=== PATIENT | male | born 1980 ===

== ENCOUNTER 2017-07-20 13:23 | Outpatient (RCR) | payer BC | END 2017-08-08 | disposition home or self-care (01) | LOC: WCC 13:23 | DX: L97.929 Non-pressure chronic ulcer of unspecified part of left lower leg with unspecified severity (principal); Z90.49 Acquired absence of other specified parts of digestive tract; I10 Essential (primary) hypertension; Z87.442 Personal history of urinary calculi | CPT/HCPCS: 11043; 29581; G0463 ==

== ENCOUNTER 2017-08-10 13:52 | Outpatient (RCR) | payer BC ==
[~2017-08-10] VITALS: Ht 182.9 cm; Wt 241.8 kg
== END 2017-09-08 | disposition home or self-care (01) ==
LOC: WCC 13:52
DX: L97.823 Non-pressure chronic ulcer of other part of left lower leg with necrosis of muscle (principal); L03.116 Cellulitis of left lower limb; R60.0 Localized edema; E66.01 Morbid (severe) obesity due to excess calories; B35.4 Tinea corporis
CPT/HCPCS: 11043; 29580

== ENCOUNTER 2017-09-09 09:30 | Outpatient (RCR) | payer BC | END 2017-10-08 | disposition home or self-care (01) | LOC: EDBD → WCC 09:30 | DX: L97.823 Non-pressure chronic ulcer of other part of left lower leg with necrosis of muscle (principal); L03.116 Cellulitis of left lower limb; R60.0 Localized edema; E66.01 Morbid (severe) obesity due to excess calories; B35.4 Tinea corporis; I10 Essential (primary) hypertension; Z90.49 Acquired absence of other specified parts of digestive tract | CPT/HCPCS: 11042; 11043; 29580 ==

== ENCOUNTER 2017-09-15 08:31 | Outpatient (CLI) | payer BC ==
[2017-09-15 09:09] LABS: BASOPHILS % (AUTO) 0.9 % (0.0-2.0); EOSINOPHILS % (AUTO) 3.6 % (0.0-3.0); HEMATOCRIT 37.3 % (42.0-52.0); HEMOGLOBIN 12.6 G/DL (14.2-18.0); LYMPHOCYTES % (AUTO) 23.3 % (20.0-45.0); MEAN CORPUSCULAR VOLUME 93 FL (80-99); MONOCYTES % (AUTO) 10.4 % (1.0-10.0); NEUTROPHILS % (AUTO) 61.8 % (45.0-75.0); PLATELET COUNT 206 K/UL (150-450); RED BLOOD COUNT 3.99 M/UL (4.70-6.10); RED CELL DISTRIBUTION WIDTH 13.6 % (11.6-14.8); WHITE BLOOD COUNT 5.1 K/UL (4.8-10.8)
[2017-09-15 09:46] LABS: ALANINE AMINOTRANSFERASE 38 U/L (12-78); ALBUMIN 3.3 G/DL (3.4-5.0); ALBUMIN/GLOBULIN RATIO 0.8 (1.0-2.7); ALKALINE PHOSPHATASE 70 U/L (46-116); ANION GAP 6 mmol/L (5-15); ASPARTATE AMINO TRANSFERASE 18 U/L (15-37); BILIRUBIN,TOTAL 0.7 MG/DL (0.2-1.0); BLOOD UREA NITROGEN 16 mg/dL (7-18); CALCIUM 9.2 MG/DL (8.5-10.1); CARBON DIOXIDE 30 MMOL/L (21-32); CHLORIDE 105 MMOL/L (98-107); CREATININE 1.4 MG/DL (0.55-1.30); SODIUM 140 MMOL/L (136-145)
== END 2017-09-15 10:31 | disposition home or self-care (01) ==
LOC: LAB 08:31
DX: E11.9 Type 2 diabetes mellitus without complications (principal)
CPT/HCPCS: 36415; 80053; 83036; 84443; 85025

== ENCOUNTER 2017-10-10 09:31 | Outpatient (RCR) | payer BC | END 2017-11-08 | disposition home or self-care (01) | LOC: EDBD 09:31 → WCC 09:31 | DX: L97.822 Non-pressure chronic ulcer of other part of left lower leg with fat layer exposed (principal); I87.332 Chronic venous hypertension (idiopathic) with ulcer and inflammation of left lower extremity; E66.01 Morbid (severe) obesity due to excess calories; R60.0 Localized edema; B35.4 Tinea corporis; I10 Essential (primary) hypertension; Z87.442 Personal history of urinary calculi | CPT/HCPCS: 11042; 15271; 29580; 29581; Q4106; Q4101 ==

== ENCOUNTER 2017-11-09 08:45 | Outpatient (RCR) | payer BC | END 2017-12-09 | disposition home or self-care (01) | LOC: WCC 08:45 | DX: L97.822 Non-pressure chronic ulcer of other part of left lower leg with fat layer exposed (principal); I87.332 Chronic venous hypertension (idiopathic) with ulcer and inflammation of left lower extremity; E66.01 Morbid (severe) obesity due to excess calories; R60.0 Localized edema; B35.4 Tinea corporis; Z90.49 Acquired absence of other specified parts of digestive tract; I10 Essential (primary) hypertension | CPT/HCPCS: 11042 ==

== ENCOUNTER 2017-12-15 15:29 | Outpatient (RCR) | payer BC | END 2018-01-08 | disposition home or self-care (01) | LOC: WCC 15:29 | DX: L97.822 Non-pressure chronic ulcer of other part of left lower leg with fat layer exposed (principal); I87.332 Chronic venous hypertension (idiopathic) with ulcer and inflammation of left lower extremity; E66.01 Morbid (severe) obesity due to excess calories; R60.0 Localized edema; B35.4 Tinea corporis; Z90.49 Acquired absence of other specified parts of digestive tract; I10 Essential (primary) hypertension | CPT/HCPCS: 29581; G0463 ==

== ENCOUNTER 2018-01-09 13:03 | Outpatient (RCR) | payer BC | END 2018-02-08 | disposition home or self-care (01) | LOC: WCC 13:03 | DX: L97.822 Non-pressure chronic ulcer of other part of left lower leg with fat layer exposed (principal); I87.332 Chronic venous hypertension (idiopathic) with ulcer and inflammation of left lower extremity; E66.01 Morbid (severe) obesity due to excess calories; R60.0 Localized edema; B35.4 Tinea corporis; Z90.49 Acquired absence of other specified parts of digestive tract; I10 Essential (primary) hypertension; Z87.442 Personal history of urinary calculi | CPT/HCPCS: 11042 ==

== ENCOUNTER 2018-02-09 09:00 | Outpatient (RCR) | payer BC | END 2018-03-10 | disposition home or self-care (01) | LOC: WCC 09:00 | DX: L97.822 Non-pressure chronic ulcer of other part of left lower leg with fat layer exposed (principal); I87.332 Chronic venous hypertension (idiopathic) with ulcer and inflammation of left lower extremity; E66.01 Morbid (severe) obesity due to excess calories; R60.0 Localized edema; B35.4 Tinea corporis; I10 Essential (primary) hypertension; Z90.49 Acquired absence of other specified parts of digestive tract | CPT/HCPCS: 11042 ==

== ENCOUNTER 2018-03-13 11:08 | Outpatient (RCR) | payer BC ==
[~2018-03-13] VITALS: Ht 182.9 cm; Wt 241.8 kg
[2018-03-16] MEDS ORDERED: Lidocaine HCl 2% Jelly 6ml Tube TOPIC SCH (11:15)
== END 2018-04-10 | disposition home or self-care (01) ==
LOC: WCC 11:08
DX: L97.822 Non-pressure chronic ulcer of other part of left lower leg with fat layer exposed (principal); I87.332 Chronic venous hypertension (idiopathic) with ulcer and inflammation of left lower extremity; E66.01 Morbid (severe) obesity due to excess calories; R60.0 Localized edema; B35.4 Tinea corporis; L97.222 Non-pressure chronic ulcer of left calf with fat layer exposed; Z90.49 Acquired absence of other specified parts of digestive tract; I10 Essential (primary) hypertension; Z87.442 Personal history of urinary calculi
CPT/HCPCS: 11042; 29581; G0463

== ENCOUNTER 2018-04-12 09:30 | Outpatient (RCR) | payer BC | END 2018-05-11 | disposition home or self-care (01) | LOC: WCC 09:30 | DX: L97.822 Non-pressure chronic ulcer of other part of left lower leg with fat layer exposed (principal); I87.332 Chronic venous hypertension (idiopathic) with ulcer and inflammation of left lower extremity; E66.01 Morbid (severe) obesity due to excess calories; R60.0 Localized edema; B35.4 Tinea corporis; L97.222 Non-pressure chronic ulcer of left calf with fat layer exposed; I10 Essential (primary) hypertension; Z90.49 Acquired absence of other specified parts of digestive tract | CPT/HCPCS: 29581; G0463 ==